=== PATIENT | male | born 2000 | race Caucasian/White ===

== ENCOUNTER 2024-03-16 17:43 | Emergency (ER) | payer SELFPAY ==
[2024-03-16] MEDS ORDERED: HYDROCODONE/APAP 5/325 MG TAB ONE (19:00)
[2024-03-16] MEDS ORDERED: KETOROLAC 30 MG/ML INJ ONE (19:00)
[2024-03-16] MEDS ORDERED: TDAP (DIPHTH,PERTUSS(ACELL),TET VAC) 0.5 ML VIAL IMVAC ONE (19:01)
--- NOTE | 2024-03-16 19:02 | RAD REPORT ---
EXAM: Hand Left 3 View HISTORY: Pain;Swelling COMPARISON: None FINDINGS: Fracture at the base of the fifth metacarpal with intra-articular extension. Due to overlapping osseo us structures, the alignment of the fracture is difficult to assess. The base of the fourth metacarpal is also not well assessed. Cannot exclude fracture at this location. IMPRESSION: Fracture with intra-articular extension at the base of the fifth metacarpal. Possible fracture at the base of the fourth metacarpal as well. Neither area is well evaluated due to overlapping osseous structures. Could consider CT to better assess the fractures.
--- NOTE | 2024-03-16 19:04 | RAD REPORT ---
EXAM: Hand Right 3 View HISTORY: Pain;Swelling COMPARISON: None FINDINGS: Bones: No acute fracture identified. Alignment:No significant malalignment. Degenerative changes:None significant. Other: n/a IMPRESSION: No evidence of acute osseous abnormality involving the imaged hand.
--- NOTE | 2024-03-16 20:49 | ER ---
Nurse's Notes [facility] [place] Name: Nelson Beltran Age: 24 yrs Sex: Male : 2000 Arrival Date: 03/16/2024 Time: 17:43 Bed 20 Private MD: Diagnosis: Displaced fracture of shaft of fifth metacarpal bone, left hand Presentation: 03/16 18:24 Chief complaint: Patient states: he punched a wall with both hands and has MONICA hand kc6 pain. Coronavirus screen: At this time, the client does not indicate any symptoms associated with coronavirus-19. Ebola Screen: No symptoms or risks identified at this time. Initial Sepsis Screen: Does the patient meet any 2 criteria? No. Patient's initial sepsis screen is negative. Does the patient have a suspected source of infection? No. Patient's initial sepsis screen is negative. Risk Assessment: Do you want to hurt yourself or someone else? Patient reports no desire to harm self or others. Onset of symptoms was March 16, 2024. 18:24 Method Of Arrival: Ambulatory 6 18:24 Acuity: VIOLETA 3 kc6 Historical: - Allergies: 18:25 No Known Allergies; kc6 - PMHx: 18:25 Gastroesophageal reflux disease; kc6 - PSHx: 18:25 None; kc6 - Immunization history:: Last tetanus immunization: not immunized. - Infectious Disease History:: Denies. - Social history:: Smoking status: Patient denies any tobacco usage or history of. Screenin:45 [facility] ED Fall Risk Assessment (Adult) History of falling in the last 3 months, jb4 including since admission No falls in past 3 months (0 pts) Confusion or Disorientation No (0 pts) Intoxicated or Sedated No (0 pts) Impaired Gait No (0 pts) Mobility Assist Device Used No (0 pt) Altered Elimination No (0 pt) Score/Fall Risk Level 0 - 2 = Low Risk Oriented to surroundings, Maintained a safe environment. Abuse screen: Denies threats or abuse. Nutritional screening: No deficits noted. Tuberculosis screening: No symptoms or risk factors identified. Assessment: 18:45 General: Appears in no apparent distress. comfortable, Behavior is calm, cooperative, jb4 appropriate for age. Pain: Complains of pain in right hand and left hand Pain does not radiate. Pain currently is 8 out of 10 on a pain scale. Quality of pain is described as throbbing. Neuro: Level of Consciousness is awake, alert, obeys commands, Oriented to person, place, time, situation. Cardiovascular: Patient's skin is warm and dry. Respiratory: Airway is patent Respiratory effort is even, unlabored, Respiratory pattern is regular, symmetrical. Derm: Skin is intact, Skin is pink, warm \T\ dry. Musculoskeletal: Circulation, motion, and sensation intact. Range of motion: limited in left wrist. 20:38 Reassessment: Patient appears in no apparent distress at this time. Patient and/or jb4 family updated on plan of care and expected duration. Pain level reassessed. Patient is alert, oriented x 3, equal unlabored respirations, skin warm/dry/pink. 21:10 Reassessment: Patient appears in no apparent distress at this time. Patient and/or jb4 family updated on plan of care and expected duration. Pain level reassessed. Patient is alert, oriented x 3, equal unlabored respirations, skin warm/dry/pink. Vital Signs: 18:24 BP 141 / 92; Pulse 86; Resp 18 S; Pulse Ox 100% on R/A; Weight 108.86 kg (R); Height 6 kc6 ft. 3 in. (R); Pain 8/10; 18:24 Body Mass Index 30.00 (108.86 kg, 190.5 cm) kc6 18:24 Pain Scale: Adult kc6 ED Course: 17:47 Patient arrived in ED. mg5 18:10 Lamont Chang FNP-C is [facility]. dr5 18:10 David Ag MD is Attending Physician. dr5 18:25 Triage completed. kc6 18:25 Arm band placed on. kc6 18:45 Patient has correct armband on for positive identification. Bed in low position. Call jb4 light in reach. Side rails up X 1. Provided Education on: discharge. 18:56 Hand Left 3 View XRAY In Process Unspecified. EDMS 18:56 Hand Right 3 View XRAY In Process Unspecified. EDMS 20:38 Scotty Marsh, CARLA is Primary Nurse. jb4 21:12 No provider procedures requiring assistance completed. Patient did not have IV access jb4 during this emergency room visit. Administered Medications: 19:17 Drug: Boostrix Tdap IM 0.5 ml IM once; as a single dose Route: IM; Site: right deltoid; jb4 19:52 Follow up: Response: No adverse reaction jb4 19:17 Drug: Ketorolac IM 30 mg IM once Route: IM; Site: left deltoid; jb4 19:52 Follow up: Response: No adverse reaction; Marked relief of symptoms jb4 19:17 Drug: HYDROcodone-acetaminophen PO 5 mg-325 mg 2 tabs PO once Route: PO; jb4 19:52 Follow up: Response: No adverse reaction; Marked relief of symptoms; Pain is decreased; jb4 RASS: Alert and Calm (0) Medication: 18:45 VIS not applicable for this client. jb4 Outcome: 20:49 Discharge ordered by . isiah 21:12 Discharged to home ambulatory, jb4 21:12 Condition: stable 21:12 Discharge instructions given to patient, Instructed on discharge instructions, follow up and referral plans. Demonstrated understanding of instructions, follow-up care, 21:12 Patient left the ED. jb4 Signatures: Dispatcher [employer] EDScotty Florence RN RN jb4 Jacinta Dailey RN RN Chiquis Torres mg5 Lamont Chang, PRODUCT SAFETY COMPLIANCE LEADER-C PRODUCT SAFETY COMPLIANCE LEADER-Cdr5 Corrections: (The following items were deleted from the chart) 21:12 18:45 No provider procedures requiring assistance completed. jb4 jb4 21:12 18:45 Patient did not have IV access during this emergency room visit. jb4 jb4
--- NOTE | 2024-03-16 20:49 | EDPHYS ---
Physician Documentation [facility] Name: Nelson Beltran Age: 24 yrs Sex: Male : 2000 Arrival Date: 03/16/2024 Time: 17:43 Bed 20 Private MD: ED Physician David Ag HPI: 03/16 18:24 This 24 yrs old Male presents to ER via Unassigned with complaints of Hand dr5 Injury - HIT A 2X4, SWELLING. 18:24 The patient or guardian reports swelling, tenderness. The complaints affect the right dr5 side which is dominant, left hand diffusely, right hand diffusely. Context: The problem was sustained at home. Onset: The symptoms/episode began/occurred acutely. Pt reports he was angry about 30 minutes prior to arrival and punched a wall with both of his hands. Pt reports pain to both hands with left hand being worse than right.. Historical: - Allergies: 18:25 No Known Allergies; kc6 - PMHx: 18:25 Gastroesophageal reflux disease; kc6 - PSHx: 18:25 None; kc6 - Immunization history:: Last tetanus immunization: not immunized. - Infectious Disease History:: Denies. - Social history:: Smoking status: Patient denies any tobacco usage or history of. ROS: 18:24 Constitutional: as per hpi dr5 Exam: 18:24 Constitutional: This is a well developed, well nourished patient who is awake, alert, dr5 and in no acute distress. Head/Face: Normocephalic, atraumatic. Eyes: Pupils equal round and reactive to light, extra-ocular motions intact. Lids and lashes normal. Conjunctiva and sclera are non-icteric and not injected. Cornea within normal limits. Periorbital areas with no swelling, redness, or edema. Neck: Trachea midline, no thyromegaly or masses palpated, and no cervical lymphadenopathy. Supple, full range of motion without nuchal rigidity, or vertebral point tenderness. No Meningismus. Chest/axilla: Normal chest wall appearance and motion. Nontender with no deformity. No lesions are appreciated. Cardiovascular: Regular rate and rhythm with a normal S1 and S2. Normal PMI, no JVD. No pulse deficits. Back: No spinal tenderness. No costovertebral tenderness. Full range of motion. Skin: Warm, dry with normal turgor. Normal color with no rashes, no lesions, and no evidence of cellulitis. MS/ Extremity: Pulses equal, no cyanosis. Neurovascular intact. Full, normal range of motion. Swelling noted to left 4th and 5th digits - NVI. Swelling noted to right 5th digit of right hand. NVI. Vital Signs: 18:24 BP 141 / 92; Pulse 86; Resp 18 S; Pulse Ox 100% on R/A; Weight 108.86 kg (R); Height 6 kc6 ft. 3 in. (R); Pain 8/10; 18:24 Body Mass Index 30.00 (108.86 kg, 190.5 cm) kc6 18:24 Pain Scale: Adult kc6 Procedures: 20:55 Splinting: Splint applied to left arm using Ulnar Gutter Splint. applied by tech. post dr5 reduction film - Examined by me, post splint application: neurovascular intact, 2+ distal pulses palpable, brisk capillary refill noted, Patient tolerated well. MDM: 18:11 Medical Screening Exam initiated dr5 18:24 Differential diagnosis: dislocation, open fracture, closed fracture, contusion. Data dr5 reviewed: vital signs, nurses notes. 20:55 I considered the following discharge prescriptions or medication management in the [facility] emergency department Medications were administered in the Emergency Department. See MAR. Care significantly affected by the following chronic conditions: GERD. Care significantly affected by the following Social Determinants of Health: Poor access to healthcare and/or lack of insurance, Poor access to transportation. Counseling: I had a detailed discussion with the patient and/or guardian regarding the historical points, exam findings, and any diagnostic results supporting the discharge/admit diagnosis, the presence of at least one elevated blood pressure reading (>120/80) during this emergency department visit, radiology results, the need for outpatient follow up, for definitive care, a orthopedic surgeon, Recommended Dr. Cruz Welch in [place] if he doesn't have an orthopedic doctor nearby., to return to the emergency department if symptoms worsen or persist or if there are any questions or concerns that arise at home. Medication response: Toradol markedly relieved the patient's pain. Response to treatment: the patient's symptoms have markedly improved after treatment. ED course: Patient is a 24-year-old male with history of GERD. Fracture noted on x-ray. Discussed plan of care with patient to follow-up with orthopedic in 1 week. Patient was placed in ulnar gutter splint. Recommended alternate Tylenol Motrin as needed for pain and swelling. All questions answered.. 03/16 18:23 Order name: Hand Left 3 View XRAY; Complete Time: 19:04 dr5 03/16 18:23 Order name: Hand Right 3 View XRAY; Complete Time: 19:04 dr5 03/16 19:06 Order name: Ulnar Gutter splint; Complete Time: 19:52 dr5 Administered Medications: 19:17 Drug: Boostrix Tdap IM 0.5 ml IM once; as a single dose Route: IM; Site: right deltoid; jb4 19:52 Follow up: Response: No adverse reaction jb4 19:17 Drug: Ketorolac IM 30 mg IM once Route: IM; Site: left deltoid; jb4 19:52 Follow up: Response: No adverse reaction; Marked relief of symptoms jb4 19:17 Drug: HYDROcodone-acetaminophen PO 5 mg-325 mg 2 tabs PO once Route: PO; jb4 19:52 Follow up: Response: No adverse reaction; Marked relief of symptoms; Pain is decreased; jb4 RASS: Alert and Calm (0) Disposition Summary: 03/16/24 20:49 Discharge Ordered Notes: Location: Home dr5 Condition: Stable dr5 Diagnosis - Displaced fracture of shaft of fifth metacarpal bone, left hand dr5 Followup: dr5 - With: Emergency Department - When: As needed - Reason: Worsening of condition Followup: dr5 - With: Private Physician - When: 1 - 2 days - Reason: Recheck today's complaints, Continuance of care, Re-evaluation by your physician Discharge Instructions: - Discharge Summary Sheet dr5 - Cast or Splint Care, Adult dr5 - Finger Fracture, Adult dr5 Forms: - Medication Reconciliation Form dr5 - Patient Portal Instructions dr5 - Leadership Thank You Letter dr5 Addendum: 03/18/2024 19:24 Co-signature as Attending Physician, David Ag MD I reviewed the patient's care r n provided by the Advanced Practice Provider and agree with the diagnosis and treatment plan. Signatures: Dispatcher [employer] David Rodrigez MD MD rn Bryson, James, RN RN jb4 Jacinta Dailey RN RN kc6 Lamont Chang, RADAR ENGINEERING TEACHER-C RADAR ENGINEERING TEACHER-[facility]5
[2024-03-17 02:13] VITALS: BP 141/92; O2SAT 100
== END 2024-03-16 21:12 | disposition home or self-care (01) ==
LOC: ER 17:43
PROC: 2W3FX1Z Immobilization of Left Hand using Splint (ICD-10-PCS; principal; 2024-03-16)
DX: S62.327A Displaced fracture of shaft of fifth metacarpal bone, left hand, initial encounter for closed fracture (principal)
CPT/HCPCS: 96372; 99284